=== PATIENT | male | born 1975 | race Caucasian/White ===

== ENCOUNTER → 2017-05-22 | Emergency (ER) | payer MEDICAID, OTHER ==
[~2017-05-22] VITALS: Ht 177.8 cm; Wt 85.0 kg
[~2017-05-22] MED LIST: CYCL-1 PO
[2017-05-22 16:44] VITALS: BP 132/75
== END ==
LOC: ER 16:34
DX: Z02.89 Encounter for other administrative examinations (principal); G89.29 Other chronic pain; M54.9 Dorsalgia, unspecified
CPT/HCPCS: 99283; A6258; A6449

== ENCOUNTER 2021-03-11 06:45 | Emergency (ER) | payer MEDICAID ==
[~2021-03-11] VITALS: Ht 182.9 cm; Wt 131.0 kg
[2021-03-11 06:52] VITALS: BP 193/116
[2021-03-11] MEDS ORDERED: adenosine 3mg/ml 2ml vial IV ONE (07:40)
[2021-03-11] MEDS ORDERED: PENI500T2 PO (07:46)
[2021-03-11] MEDS ORDERED: CHLO118M (07:46)
== END 2021-03-11 07:56 | disposition home or self-care (01) ==
LOC: ER 06:46
DX: K05.10 Chronic gingivitis, plaque induced (principal); K05.319 Chronic periodontitis, localized, unspecified severity; G89.29 Other chronic pain; Z79.899 Other long term (current) drug therapy; Z79.2 Long term (current) use of antibiotics
CPT/HCPCS: 99283